=== PATIENT | female | born 1950 | race Hispanic/Latino ===

== ENCOUNTER 2017-11-05 13:03 | Observation (INO) | payer MEDICARE, MEDICAID ==
[2017-11-05 13:59] LABS: #Eosinphils 0.1 thou/uL (0.0-0.7); #Lymphocytes 0.5 thou/uL (1.20-3.40); #Monocytes 0.3 thou/uL (0.11-0.59); #Neutrophils 4.3 thou/uL (1.40-6.50); %Basophils 0.5 % (0.0-1.0); %Eosinophils 1.1 % (0.0-10.0); %Lymphocytes 9.2 % (21.0-51.0); %Monocytes 5.1 % (0.0-10.0); %Neutrophils 84.2 % (42.0-75.0); Hemoglobin 11.5 g/dL (12.0-16.0); Mean Corpuscular HGB CONC 32.3 g/dL (32.0-36.0); Mean Corpuscular Hemoglobin 26.1 pg (27.0-31.0); Mean Corpuscular Volume 80.8 fl (81.0-99.0); Mean Platelet Volume 8.1 fL (7.4-10.4); Platelet Count 192 thou/uL (130-400); Red Blood Cell (RBC) Count 4.42 mill/uL (4.20-5.40); White Blood Cell (WBC) Count 5.2 thou/uL (4.8-10.8)
[2017-11-05 14:25] LABS: ALT (SGPT) 21 U/L (8-55); AST (SGOT) 21 U/L (5-34); Albumin 4.2 g/dL (3.4-4.8); Alkaline Phosphatase 90 U/L (40-150); Anion Gap 15 mmol/L (10-20); BUN (Urea Nitrogen) 16 mg/dL (9.8-20.1); Bilirubin, Total 0.4 mg/dL (0.2-1.2); Calc. Creatinine Clearance 0 mL/min (70-130); Calcium 9.2 mg/dL (7.8-10.44); Carbon Dioxide 20 mmol/L (23-31); Chloride 104 mmol/L (98-107); Estimated GFR-MDRD 67; Glucose 149 mg/dL (80-115); Lipase 12 U/L (8-78); Potassium 3.5 mmol/L (3.5-5.1); Protein, Total 8.2 g/dL (6.0-8.3); Sodium 135 mmol/L (136-145)
[2017-11-05] MEDS ORDERED: Ondansetron ODT 4 MG TAB ONE (14:42)
[2017-11-05] MEDS ORDERED: Nitroglycerin 2% Ointment 1 INCH/1 GM Packet ONE (15:51)
[2017-11-05 16:00] LABS: Bilirubin Negative (Negative); Blood, Urine Trace (Negative); Glucose, Urine (Dipstick) Negative (Negative); Leukocyte Negative (Negative); Nitrite Negative (Negative); Protein, Urine (Dipstick) Trace mg/dL (Neg-Trace); Specific Gravity, Urine 1.015 (1.005-1.030); Urobilinogen 0.2 mg/dL (0.2-1.0); pH, Urine 7.5 (5.0-9.0)
[2017-11-05 16:01] LABS: Clarity Clear (Clear)
[2017-11-05 16:03] LABS: Other Microscopic Description Less than 2 mL rec'd
[2017-11-05 16:04] LABS: Bacteria/HPF None Seen HPF (None Seen); Hyaline Casts/LPF NONE SEEN LPF (0-3 Hyaline); Squamous Epithelial 0-3 HPF (0-3); WBC/HPF None Seen HPF (0-3)
[2017-11-05 16:11] LABS: CKMB 1.3 ng/mL (0-6.6); Troponin I 0.014 ng/mL (< 0.028)
[2017-11-05] MEDS ORDERED: Ketorolac Tromethamine 30 MG/ML VIAL ONE (17:45)
--- NOTE | 2017-11-05 18:45 | HP ---
DATE OF ADMISSION: 11/05/2017. CHIEF COMPLAINT: Chest pain. HISTORY OF PRESENT ILLNESS: This is a 67-year-old female. She [facility] with at the bedside. The patient was having some body aches and persistent fatigue. Has a history of low grade fever for the past few days and she also had sore throat, so she went to her primary care physician 2 days ago and she was started on Tamiflu, but she has been having persistent vomiting for the past night and was unable to keep anything down. She denies having any diarrhea, no shortness of breath, no abdominal pain. No history of any rash. No history of eating any outside f ood. She does complain of being exposed to sick people. The patient's barely speaks Japanese . He did mention that the patient had a flu shot this season, but the fact that her PCP has started her on Tamiflu and assuming the patient did not have a flu shot. Patient was complaining of chest pa in when she came to the ER and so she had a workup with the EKG which was unremarkable and was also r eviewed by me and she had negative troponins, but had an elevated CPK, which could be from her body p ains. She denied having any dizziness or any headaches at this time. No history of any trauma. PAST SURGICAL HISTORY: None. SOCIAL HISTORY: Patient denies using any alcohol. No history of illicit drug use. No history of sm oking. FAMILY HISTORY: No significant family history of coronary artery disease was noted. PAST SURGICAL HISTORY: The patient had a history of in the past. REVIEW OF SYSTEMS: All 12 systems are reviewed with the patient thoroughly and found to be negative at this time. The following complete review of systems was negative, unless otherwise mentioned in the HPI or below : Constitutional: Weight loss or gain, sense of well-being, ability to conduct usual activities, exerc ise tolerance. Skin/Breast: Rash, itching, changes in hair growth or loss, nail changes, breast lumps, tenderness, swelling, nipple discharge. Eyes: Vision, double vision, tearing, blind spots, pain. ENT/Mouth: Headaches (location, time of onset, duration, precipitating factors), vertigo, lightheade dness, injury. Vision, double vision, tearing, blind spots, pain, nose bleeding, colds, obstruction, discharge, dental difficulties, gingival bleeding, dentures, neck stiffness, pain, tenderness, masses in thyroid or other areas. Cardiovascular: Precordial pain, substernal distress, palpitations, syncope, dyspnea on exertion, or thopnea, nocturnal paroxysmal dyspnea, edema, cyanosis, hypertension, heart murmurs, varicosities, ph lebitis, claudication. Respiratory: Pain, shortness of breath, wheezing, stridor, cough, hemoptysis, fever or night sweats Gastrointestinal: Poor appetite, dysphagia, indigestion, abdominal pain, heartburn, eructation, naus ea, vomiting, hematemesis, jaundice, constipation, or diarrhea, abnormal stools (chloe-colored, tarry, bloody, greasy, foul smelling), flatulence, hemorrhoids, recent changes in bowel habits. Genitourinary: Urgency, frequency, dysuria, nocturia, hematuria, polyuria, oliguria, unusual (or mandeep nge in) color of urine, stones, hesitancy, change in size of stream, dribbling, acute retention or in continence, libido, potency. Musculoskeletal: Pain, swelling, redness or heat of muscles or joints, limitation, of motion, muscul ar weakness, atrophy, cramps. Neurologic/Psychiatric: Convulsions, paralyses, tremor, incoordination, parasthesias, difficulties w ith memory of speech, sensory or motor disturbances, or muscular coordination (ataxia, tremor), emoti onal problems, anxiety, depression, previous psychiatric care, unusual perceptions, hallucinations. Allergy/Immunologic: Skin rash, anemia, bleeding tendency, polydipsia, polyuria, intolerance to heat or cold. ALLERGIES: The patient has no known drug allergies. HOME MEDICATIONS: She is on no home medications. PHYSICAL EXAMINATION: VITAL SIGNS: Blood pressures in the ER were 163/70, heart rate of 89, respirations 24, saturation is 98%. GENERAL: The patient is moderately built and morbidly obese. She is alert and oriented x3. HEENT: Atraumatic, normocephalic. PERRLA. Extraocular movements were intact. Oral mucosa is pink and moist. CARDIOVASCULAR: S1, S2 normal. No murmurs, rubs or gallops. LUNGS: Bilateral air entry was equal. No wheezing, no crackles. ABDOMEN: Soft, nontender, no guarding, no rebound tenderness. Bowel sounds normal. MUSCULOSKELETAL: No calf tenderness. No pedal edema, no tenderness, no joint swelling. SKIN: No cyanosis, no erythema, no rash, no pallor. NEUROLOGIC: Cranial nerve examination II-XII intact. No focal deficits were noted. PSYCHIATRIC: No signs of suicidal ideation. No signs of deborah. No signs of depression was noted. LYMPHATIC: Lymphadenopathy, no evidence of any localized lymphadenopathy cervical or axillary lymph nodes were noted. LABORATORY DATA: WBC 5.2, hemoglobin 11.5, hematocrit is 35.7, platelets of 192. Sodium is 135, pot assium 3.5, chloride is 104, bicarbonate is 20, BUN is 16, creatinine 0.84. CK is 199. Troponins are normal 0.014. ASSESSMENT: 1. Acute chest pain. 2. Acute flu-like syndrome. 3. Moderate dehydration. 4. Mild hyponatremia. PLAN: 1. The plain is to admit this patient. We will monitor her troponins every 6 hours and then in the morning, we will do a Cardiolite stress test. We will get an EKG if the patient develop any further chest pains overnight. 2. We will start the patient on aspirin 81 mg daily, and will do a lipid profile in the morning and will start the patient on atorvastatin. I would also start the patient on Coreg 3.125 mg p.o. b.i.d. 3. Patient has flu-like syndrome with evidence of low grade fevers and sore throat. We will continu e the Tamiflu at this time and will closely monitor for any development of pneumonia. We will start the patient on IV fluids at 100 mL an hour and have a good hydration. 4. The patient has mild hyponatremia which should be corrected with normal saline. 5. Moderate dehydration. This should be corrected with IV fluids, should go at 100 mL hour. We parris l monitor urine output, in's and out's. 6. Deep venous thrombosis prophylaxis. Lovenox 40 mg subcu daily. Dictating physician, Paul Infante, has spent 70 minutes of this patient.
[2017-11-05 18:51] LABS: CKMB 1.4 ng/mL (0-6.6); Troponin I 0.027 ng/mL (< 0.028)
[2017-11-05] MEDS ORDERED: Ondansetron HCl/PF 4 MG/2 ML Vial IVP PRN (19:32)
[2017-11-05] MEDS ORDERED: Pepto Bismol Chew TAB PO PRN (19:32)
[2017-11-05] MEDS ORDERED: HYDROcodone/Acetaminophen 10/325 mg Tablet PO PRN (19:32)
[2017-11-05] MEDS: HYDROcodone/Acetaminophen 5/325 mg Tablet PO PRN (19:47)
[2017-11-05] MEDS: Ondansetron ODT 4 MG TAB PO PRN (19:48)
[2017-11-05] MEDS: Sodium Chloride 0.9% 1,000 ML IV SCH (19:50)
[2017-11-05] MEDS: Carvedilol 3.125 MG TAB PO SCH (20:36)
[2017-11-05] MEDS: Famotidine/PF 20 mg/2ml Vial SLOW IVP SCH (20:36)
[2017-11-05 21:04] VITALS: BMI 40.5
[2017-11-05] MEDS: Oseltamivir 75 MG CAP PO SCH (21:19)
[2017-11-05 22:39] LABS: Troponin I 0.012 ng/mL (< 0.028)
[2017-11-06] MEDS: Ondansetron ODT 4 MG TAB PO PRN (03:38)
[2017-11-06] MEDS: HYDROcodone/Acetaminophen 5/325 mg Tablet PO PRN (03:38)
[2017-11-06 05:08] LABS: #Lymphocytes 0.6 thou/uL (1.20-3.40); #Monocytes 0.4 thou/uL (0.11-0.59); #Neutrophils 1.8 thou/uL (1.40-6.50); %Basophils 0.3 % (0.0-1.0); %Eosinophils 1.4 % (0.0-10.0); %Lymphocytes 21.7 % (21.0-51.0); %Monocytes 14.7 % (0.0-10.0); %Neutrophils 61.9 % (42.0-75.0); Mean Corpuscular HGB CONC 33.3 g/dL (32.0-36.0); Mean Corpuscular Hemoglobin 26.8 pg (27.0-31.0); Mean Corpuscular Volume 80.6 fl (81.0-99.0); Mean Platelet Volume 8.6 fL (7.4-10.4); Platelet Count 158 thou/uL (130-400); RBC Distribution Width 15.1 % (11.5-14.5); Red Blood Cell (RBC) Count 4.09 mill/uL (4.20-5.40); White Blood Cell (WBC) Count 2.9 thou/uL (4.8-10.8)
[2017-11-06] MEDS: Sodium Chloride 0.9% 1,000 ML IV SCH (05:32)
[2017-11-06 05:35] LABS: Anion Gap 12 mmol/L (10-20); BUN (Urea Nitrogen) 18 mg/dL (9.8-20.1); Calc. Creatinine Clearance 95 mL/min (70-130); Calcium 8.3 mg/dL (7.8-10.44); Carbon Dioxide 23 mmol/L (23-31); Cardiac Risk 3.9 (Less than 4.5); Chloride 106 mmol/L (98-107); Cholesterol 174 mg/dl (< 200 Desired); Estimated GFR-MDRD 67; Glucose 103 mg/dL (80-115); HDL Cholesterol 45 mg/dL (>60 Neg Risk); LDL Cholesterol, Calculated 119 mg/dL; Potassium 3.4 mmol/L (3.5-5.1); Sodium 138 mmol/L (136-145); Triglycerides 51 mg/dL (Less than 150)
[2017-11-06] MEDS: Carvedilol 3.125 MG TAB PO SCH (08:56)
[2017-11-06] MEDS ORDERED: Aspirin 325 MG TAB PO SCH (09:00)
[2017-11-06] MEDS ORDERED: Enoxaparin Sodium 40 MG/0.4 ML SYRINGE SC SCH (09:00)
[2017-11-06] MEDS: Famotidine/PF 20 mg/2ml Vial SLOW IVP SCH (09:04)
[2017-11-06] MEDS: Oseltamivir 75 MG CAP PO SCH (09:13)
[2017-11-06 11:58] VITALS: BP 139/62; TEMP 98.5
--- NOTE | 2017-11-06 12:08 | PDOC.PN ---
- Subjective Encounter Start Date: 11/06/17 Encounter Start Time: 08:00 Subjective: no chest pain, is feeling better -: no nausea or abd pain now -: is amb in room, still weak - Objective Resuscitation Status: Resuscitation Status FULL:Full Resuscitation MAR Reviewed: Yes Vital Signs & Weight: Vital Signs (12 hours) Temp Pulse Resp BP BP BP BP 11/06/17 11:52 98.5 F 58 L 18 139/62 11/06/17 09:47 138/67 161/75 H 11/06/17 08:19 98.9 F 61 16 128/58 L 11/06/17 07:23 100.5 F H 65 18 11/06/17 03:36 100.5 F H 65 18 131/60 Pulse Ox 11/06/17 11:52 95 11/06/17 09:47 11/06/17 08:19 98 11/06/17 07:23 11/06/17 03:36 98 Weight Weight 207 lb 9.6 oz I&O: 11/05/17 11/06/17 11/07/17 06:59 06:59 06:59 Intake Total 970 Balance 970 Result Diagrams: 11/06/17 04:33 11/06/17 04:33 Phys Exam - Physical Examination HEENT: PERRLA, moist MMs Neck: no JVD, supple Respiratory: no wheezing, no rales Cardiovascular: RRR, no significant murmur Gastrointestinal: soft, non-tender, positive bowel sounds Musculoskeletal: no edema, pulses present Neurological: non-focal, moves all 4 limbs Psychiatric: A&O x 3 Dx/Plan (1) Influenza Code(s): J11.1 - FLU DUE TO UNIDENTIFIED INFLUENZA VIRUS W OTH RESP MANIFEST Status: Acute (2) Chest pain Code(s): R07.9 - CHEST PAIN, UNSPECIFIED Status: Resolved (3) Dyslipidemia Code(s): E78.5 - HYPERLIPIDEMIA, UNSPECIFIED Status: Chronic (4) Dehydration Code(s): E86.0 - DEHYDRATION Status: Acute (5) Nausea & vomiting Code(s): R11.2 - NAUSEA WITH VOMITING, UNSPECIFIED Status: Resolved (6) HTN (hypertension) Code(s): I10 - ESSENTIAL (PRIMARY) HYPERTENSION Status: Chronic Qualifiers: Hypertension type: essential hypertension Qualified Code(s): I10 - Essential (primary) hypertension - Plan heart healthy meal now -: likely dc this afternoon -: finish her current bag of iv fluid by 2pm -: to continue tamiflu -: trop x3 -ve, refused to get stress test done per staff * . Review of Systems - Medications/Allergies Allergies/Adverse Reactions: Allergies Allergy/AdvReac Type Severity Reaction Status Date / Time No Known Drug Allergies Allergy Verified 11/05/17 20:53 Medications: Current Medications Hydrocodone Bitart/Acetaminophen (Maxwell 10/325) 1 tab PO Q4H PRN PRN Reason: Moderate Pain (4-6) Hydrocodone Bitart/Acetaminophen (Maxwell 5/325) 1 tab PO Q4H PRN PRN Reason: Moderate Pain (4-6) Last Admin: 11/06/17 03:38 Dose: 1 tab Albuterol/Ipratropium (Duoneb) 3 ml NEB [id number] PRN PRN Reason: SOB &/or Wheezing Aspirin (Aspirin) 325 mg PO DAILY [facility] Last Admin: 11/06/17 09:01 Dose: 325 mg Bismuth Subsalicylate (Pepto Bismol) 2 tab PO Q1H PRN PRN Reason: Diarrhea/Loose Stools Carvedilol (Coreg) 3.125 mg PO BID [facility] Last Admin: 11/06/17 08:56 Dose: Not Given Enoxaparin Sodium (Lovenox) 40 mg SC 0900 [facility] Last Admin: 11/06/17 09:04 Dose: 40 mg Famotidine (Pepcid) 20 mg SLOW IVP Q12HR [facility] Last Admin: 11/06/17 09:04 Dose: 20 mg Gabapentin (Neurontin) 300 mg PO HS [facility] Sodium Chloride (Normal Saline 0.9%) 1,000 mls @ 100 mls/hr IV .Q10H [facility] Last Admin: 11/06/17 05:32 Dose: 1,000 mls Levofloxacin (Levaquin) 500 mg PO 0600 [facility] Ondansetron HCl (Zofran Odt) 4 mg PO Q6H PRN PRN Reason: Nausea/Vomiting Last Admin: 11/06/17 03:38 Dose: 4 mg Ondansetron HCl (Zofran) 4 mg IVP Q6H PRN PRN Reason: Nausea/Vomiting Last Admin: 11/06/17 10:56 Dose: 4 mg Oseltamivir Phosphate (Tamiflu) 75 mg PO BID [facility] Stop: 11/10/17 09:01 Last Admin: 11/06/17 09:13 Dose: 75 mg Sodium Chloride (Flush - Normal Saline) 10 ml IVF Q12HR [facility] Last Admin: 11/06/17 09:06 Dose: 10 ml Sodium Chloride (Flush - Normal Saline) 10 ml IVF PRN PRN PRN Reason: Saline Flush
[2017-11-06] MEDS ORDERED: Gabapentin 300 MG CAP PO SCH (21:00)
--- NOTE | 2017-11-06 21:38 | DIS ---
DATE OF ADMISSION: 11/05/2017 DATE OF DISCHARGE: 11/06/2017 DISCHARGE DISPOSITION: To home. PRIMARY DISCHARGE DIAGNOSES: Influenza with dehydration, nausea, and vomiting, resolving. Chest stanton n, noncardiac. SECONDARY DISCHARGE DIAGNOSES: Hypertension, dyslipidemia, obesity with BMI of 40. PROCEDURES DONE DURING HOSPITALIZATION: The patient's hemoglobin and hematocrit was 11 and 32, plate let count 158. Troponin x3 is negative. Total cholesterol 174, triglycerides 51, LDL is 119, HDL is 45 and albumin 4.2. Liver enzymes within normal limits. Chest x-ray done showed no acute infiltrat e. DISCHARGE MEDICATIONS: Levaquin 500 mg p.o. daily for another 4 days, Tamiflu 75 mg p.o. twice daily to continue the full course of 7 days with 4 tablets left at present. Lisinopril 10 mg p.o. daily a nd gabapentin 300 mg p.o. at bedtime. ALLERGIES: No known drug allergies. Please note the patient would like to have diet control for her dyslipidemia and start on medication if it is uncontrolled in the next 6 months. BRIEF COURSE DURING HOSPITALIZATION: The patient initially came with complaints of generalized body aches along with nausea, vomiting, fever of 100 and chest pain. She was already on Tamiflu for the l ast 4 days for influenza. She was placed on telemetry in view of her chest pain. She has had 3 sets of cardiac enzymes, which were negative. She was dehydrated and gentle hydration was done during he r brief stay here. This afternoon, she is feeling comfortable, ambulating and tolerating oral solid food. She will be shortly discharged home. She needs follow up with her primary care physician in 1 week. Please see a [id number] documentation on [facility] for the day of discharge.
== END 2017-11-06 14:51 | disposition home or self-care (01) ==
LOC: ERS 13:03 → 2SW 19:27
PROVIDERS: ADMIT Family Medicine; ATTEND Family Medicine
DX: J10.1 Influenza due to other identified influenza virus with other respiratory manifestations (principal); E86.0 Dehydration; R11.2 Nausea with vomiting, unspecified; R07.89 Other chest pain; I10 Essential (primary) hypertension; E78.5 Hyperlipidemia, unspecified; E87.1 Hypo-osmolality and hyponatremia; E66.9 Obesity, unspecified; Z68.41 Body mass index [BMI] 40.0-44.9, adult; Z79.899 Other long term (current) drug therapy; Z98.890 Other specified postprocedural states
CPT/HCPCS: 80048; 80053; 80061; 82550 ×2; 82553 ×2; 83690; 84484 ×2; 85025 ×2; 87633; 93005; 94760 ×3; 96361 ×2; 96372; 96374; 96375 ×2; 96376; 97139 ×3; 99284; G0378; G8987; G8988; G8989; 36415; 81003; 81015; A4216; J1650; J1885; J2405; Q0162; S0028

== ENCOUNTER 2020-07-20 15:18 | Emergency (ER) | payer MEDICARE, MEDICAID ==
[2020-07-20] MEDS ORDERED: traMADol HCl 50 MG TAB ONE (16:55)
== END 2020-07-20 17:15 | disposition home or self-care (01) ==
LOC: ERS 15:18
DX: M25.561 Pain in right knee (principal); K02.9 Dental caries, unspecified; E78.5 Hyperlipidemia, unspecified; E78.00 Pure hypercholesterolemia, unspecified; I10 Essential (primary) hypertension; Z79.899 Other long term (current) drug therapy
CPT/HCPCS: 99283

== ENCOUNTER 2025-05-16 19:14 | Observation (INO) | payer MEDICARE, MEDICAID ==
[2025-05-16 19:32] VITALS: BMI 36.5
[2025-05-16 21:05] LABS: Troponin I Less than 0.010 ng/mL (< 0.028)
[2025-05-16] MEDS: Metoprolol Succinate XL 25 MG ER.TAB PO SCH (22:05)
[2025-05-16] MEDS: Gabapentin 300 MG CAP PO SCH (22:05)
[2025-05-17 08:50] LABS: Troponin I Less than 0.010 ng/mL (< 0.028)
[2025-05-17] MEDS: Pantoprazole 40 MG DR.TAB PO SCH (09:10)
[2025-05-17] MEDS: Enoxaparin 40 MG (0.4 mL) SYRINGE SC SCH (09:10)
[2025-05-17] MEDS: Lisinopril 10 MG TAB PO SCH (09:10)
[2025-05-17 10:27] VITALS: TEMP 98.9
[2025-05-17 15:30] VITALS: BP 145/69
== END 2025-05-17 18:33 | disposition home or self-care (01) ==
LOC: 2NO 19:14
PROVIDERS: ADMIT Internal Medicine; ATTEND Internal Medicine
DX: R07.89 Other chest pain (principal); I10 Essential (primary) hypertension; E78.5 Hyperlipidemia, unspecified; K21.9 Gastro-esophageal reflux disease without esophagitis; Z68.36 Body mass index [BMI] 36.0-36.9, adult; E66.9 Obesity, unspecified; Z79.899 Other long term (current) drug therapy; Z88.1 Allergy status to other antibiotic agents; Z88.5 Allergy status to narcotic agent
CPT/HCPCS: 78452; 84484 ×2; 85379; 93017; 93306; A9502; J1650; J2785 ×2; 36415; 96372; G0378

== ENCOUNTER 2025-09-02 09:08 | Outpatient (CLI) | payer MEDICARE, MEDICAID | END 2025-09-02 09:09 | disposition home or self-care (01) | LOC: ULT 09:08 | PROVIDERS: ATTEND Family Medicine | DX: R31.29 Other microscopic hematuria (principal); N13.30 Unspecified hydronephrosis | CPT/HCPCS: 76770 ==